=== PATIENT | female | born 1985 | race Two or more races ===

== ENCOUNTER 2020-09-22 23:15 | Emergency (ER) | payer SELFPAY ==
[2020-09-23] MEDS ORDERED: DIPHENHYDRAMINE 25 MG TAB/CAP ONE (00:17)
--- NOTE | 2020-09-23 00:42 | ER ---
Nurse's Notes [facility] Name: Alyssa Menchaca Age: 35 yrs Sex: Female : 1985 Arrival Date: 09/22/2020 Time: 23:19 Bed Waiting Private MD: Diagnosis: Allergy to seafood Presentation: 09/22 23:36 Chief complaint: Patient states: Pt states is having uterine pain after dinner today vg1 around 2100. Stated is allergic to Shrimp becomes very itchy and ate shrimp and drank some beer and thinks may be allergic to the shrimp. Pt stated took Peptobismol to help with stomach pain. Pt denies difficulty breathing or difficulty swallowing. Coronavirus screen: Client denies travel out of the [place] in the last 14 days. Ebola Screen: Patient negative for fever greater than or equal to 101.5 degrees Fahrenheit, and additional compatible Ebola Virus Disease symptoms. Initial Sepsis Screen: Does the patient meet any 2 criteria? No. Patient's initial sepsis screen is negative. Does the patient have a suspected source of infection? No. Patient's initial sepsis screen is negative. Risk Assessment: Do you want to hurt yourself or someone else? Patient reports no desire to harm self or others. Onset of symptoms was September 22, 2020. 23:36 Method Of Arrival: Wheelchair vg1 23:36 Acuity: CONRAD 3 vg1 Triage Assessment: 23:45 General: Appears in no apparent distress. uncomfortable, Behavior is calm, cooperative. vg1 Pain: Complains of pain in suprapubic area Pain currently is 10 out of 10 on a pain scale. Noted to be crying, guarding, moaning. GI: Abdomen is flat, Pt is actively vomiting undigested food. 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 - Social history:: Smoking status: Patient denies any tobacco usage or history of. Assessment: 23:58 Reassessment: Received VO from Juan José LEWIS to administer Benadryl 50 mg PO x1. vg1 09/23 00:31 Reassessment: Pt is choosing to leave and stated does not want any further treatment. vg1 Stated does not want to take steroids because is "trying to conceive". Patient denies pain at this time. Patient states feeling better. Vital Signs: 09/22 23:36 BP 121 / 77; Pulse 79; Resp 18; Temp 97.8(O); Pulse Ox 100% ; Weight 55 kg; Pain 10/10; vg1 ED Course: 23:19 Patient arrived in ED. wm 23:39 Triage completed. vg1 23:45 Arm band placed on Patient placed in waiting room, Patient notified of wait time. vg1 09/23 00:38 Juan José Munguia PA is PHCP. cp 00:38 Raudel Jorgensen MD is Attending Physician. cp Administered Medications: 09/22 23:59 Drug: Benadryl (diphenhydrAMINE) 50 mg Route: PO; vg1 09/23 00:29 Follow up: Response: No adverse reaction; Marked relief of symptoms vg1 Outcome: 00:42 Discharge ordered by . cp 00:52 Patient left the ED. vg1 Signatures: Juan José Munguia PA PA cp Garcia, Victoria RN RN vg1 Christelle Sanford Corrections: (The following items were deleted from the chart) 09/22 23:52 23:36 Chief complaint: Patient states: Pt states is having lower ABD pain after dinner vg1 today around 2100. Stated ate shrimp and drank some beer and thinks may be allergic to the shrimp. Pt stated took Peptobismol to help with stomach pain. vg1
--- NOTE | 2020-09-23 00:42 | EDPHYS ---
Physician Documentation [facility] Name: Alyssa Menchaca Age: 35 yrs Sex: Female : 1985 Arrival Date: 09/22/2020 Time: 23:19 Bed Waiting Private MD: ED Physician Raudel Jorgensen HPI: 09/23 00:38 This 35 yrs old Female presents to ER via Wheelchair with complaints of Abdominal cp Pain. 00:39 The patient presents with rash, of the right arm and left arm. Onset: The cp symptoms/episode began/occurred suddenly, today. Associated signs and symptoms: Pertinent positives: abdominal pain, vomiting. Possible causes: shrimp. The patient presents with abdominal pain in the lower abdomen. 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 - Social history:: Smoking status: Patient denies any tobacco usage or history of. ROS: 09/23 00:40 Constitutional: Negative for fever. cp Abdomen/GI: Positive for abdominal pain, vomiting. Skin: Positive for rash, of the right arm and left arm. 00:40 Eyes: Negative for injury, pain, redness, and discharge. cp 00:40 ENT: Negative for ear pain, sore throat, difficulty swallowing, difficulty handling secretions. 00:40 Cardiovascular: Negative for chest pain, palpitations. 00:40 Respiratory: Negative for cough, shortness of breath, wheezing. 00:40 Neuro: Negative for dizziness, headache, weakness. 00:40 All other systems are negative. cp Exam: 00:40 Constitutional: The patient appears in no acute distress, alert, awake, non-toxic, well cp developed, well nourished. 00:40 Head/Face: Normocephalic, atraumatic. cp 00:40 Chest/axilla: Inspection: normal. 00:40 Cardiovascular: Rate: normal. 00:40 Respiratory: the patient does not display signs of respiratory distress, Respirations: normal, no use of accessory muscles, no retractions, labored breathing, is not present, Breath sounds: are clear throughout, no decreased breath sounds, no stridor, no wheezing. 00:40 Abdomen/GI: Exam negative for discomfort, distension, guarding, Inspection: abdomen appears normal. 00:40 Skin: consistent with hives, on the antecubital area of upper extremities. 00:40 Neuro: Orientation: to person, place \T\ time. Mentation: is normal. Vital Signs: 09/22 23:36 BP 121 / 77; Pulse 79; Resp 18; Temp 97.8(O); Pulse Ox 100% ; Weight 55 kg; Pain 10/10; vg1 MDM: 09/23 00:42 Patient medically screened. cp 00:42 Data reviewed: vital signs, nurses notes. cp 00:42 Counseling: I had a detailed discussion with the patient and/or guardian regarding: the cp historical points, exam findings, and any diagnostic results supporting the discharge/admit diagnosis, to return to the emergency department if symptoms worsen or persist or if there are any questions or concerns that arise at home. Response to treatment: the patient's symptoms have mildly improved after treatment, VSS. Patient declines any further treatment. Declines RX for prednisone as she states she is attempting to become . Continue oral benadryl, return worsening symptoms. Administered Medications: 09/22 23:59 Drug: Benadryl (diphenhydrAMINE) 50 mg Route: PO; vg1 09/23 00:29 Follow up: Response: No adverse reaction; Marked relief of symptoms vg1 Disposition: 01:18 Co-signature as Attending Physician, Raudel Jorgensen MD. pkl Disposition Summary: 09/23/20 00:42 Discharge Ordered Location: Home cp Problem: new cp Symptoms: have improved cp Condition: Stable cp Diagnosis - Allergy to seafood cp Followup: cp - With: Private Physician - When: 1 - 2 days - Reason: Worsening of condition Discharge Instructions: - Discharge Summary Sheet cp - Allergies, Adult cp - Seafood Allergy cp Forms: - Medication Reconciliation Form cp - Thank You Letter cp - Antibiotic Education cp - Prescription Opioid Use cp Signatures: Raudel Jorgensen MD MD pkJuan José Bland PA PA cp Garcia, Victoria RN RN vg1
[2020-09-23 00:57] VITALS: BP 121/77; TEMP 97.8; O2SAT 100
== END 2020-09-23 00:52 | disposition home or self-care (01) ==
LOC: ER 23:15
DX: R10.30 Lower abdominal pain, unspecified (principal); Z91.013 Allergy to seafood; Z88.1 Allergy status to other antibiotic agents
CPT/HCPCS: 99282